=== PATIENT | female | born 1995 | race Hispanic/Latino ===

== ENCOUNTER 2025-04-26 09:00 | Emergency (ER) | payer MEDICAID ==
[~2025-04-26] VITALS: Ht 162.6 cm; Wt 78.5 kg
[2025-04-26 09:25] LABS: IMMATURE GRANULOCYTE ABSOLUTE 0.01 K/uL (0-1); NUCLEATED RED BLOOD CELLS 0.0 % (0.0-0.19); PLATELET COUNT (AUTO) 305 K/uL (130-400); RED BLOOD CELL COUNT(AUTO) 4.32 MIL/uL (4.00-5.50); RED CELL DISTRIBUTION WIDTH 12.7 % (11.0-15.5); WHITE BLOOD COUNT (AUTO) 6.2 K/uL (4.8-10.8)
[2025-04-26 09:34] LABS: CREATININE 0.7 mg/dL (0.5-1.0); GLOMERULAR FILTR. RATE CALC 119.0 mL/min (>90); GLUCOSE,RANDOM 92.0 mg/dL (70-105); SODIUM SERUM 136.0 mmol/L (136-145); UREA NITROGEN, BLOOD 7.0 mg/dL (7-18)
[2025-04-26 09:36] LABS: APPEARANCE,URINE CLEAR (CLEAR); GLUCOSE, URINE (UA) NEGATIVE (NEGATIVE); LEUKOCYTE ESTERASE ,URINE NEGATIVE Leu/uL (NEGATIVE); NITRATE,URINE NEGATIVE (NEGATIVE); OCCULT BLOOD,URINE MODERATE (NEGATIVE)
[2025-04-26 09:38] LABS: ADD UA MICROSCOPIC YES
[2025-04-26 09:44] LABS: ASPARTATE AMINOTRANSFERASE 11.0 U/L (10-37); HCG,QUANTITATIVE 13.0 mIU/mL (0-5); TOTAL PROTEIN, SERUM 8.4 g/dL (6.0-8.3)
[2025-04-26 09:50] LABS: HCG,QUALITATIVE URINE POSITIVE (NEGATIVE)
[2025-04-26 10:00] LABS: SQUAMOUS EPITHELIAL CELL,UR Moderate /HPF (0-2)
--- NOTE | 2025-04-26 10:53 | ERN ---
ED Note History of Present Illness Stated Complaint: VAGINAL BLEEDING, 6 WEEKS Chief Complaint: Vaginal Bleeding Time Seen by MD: 09:02 Dictation: 29-year-old female presenting to the emergency department for vaginal bleeding patient reports she had multiple tests at home that were positive in the urine, has not seen a OBGYN yet, last menstrual period was six weeks ago. Patient denies any chest pain shortness of breath or abdominal pain. Allergies: Coded Allergies: No Known Allergies (Unverified Allergy, Unknown, 04/26/25) Past Medical History Past Medical History: No Pertinent History Surgical History: None LMP: Mar 21, 2025 : 1 Para: 0 Aborts: 0 Review of System Dictation Constitutional: Negative for fever,chills, and weight loss Eyes: Negative for injury, pain,redness, and discharge ENT: Negative for injury,pain or swelling Cardiovascular: Negative for chest pain, palpitations, and edema Respiratory: Negative for shortness of breath, cough, and wheezing, Abdomen/GI: Negative for abdominal pain, nausea, vomiting, diarrhea, and constipation Back: Negative for injury and pain : Per HPI MS/Extremity: Negative for injury and deformity Skin: Negative for rash, and discoloration Neuro: Negative for headache, weakness, numbness, tingling, and seizure Psych: Negative for suicide ideation, homicidal ideation, and hallucinations Initial Vital Sign VS Vital Signs Date Time Temp Pulse Resp B/P (MAP) Pulse Ox O2 Delivery O2 Flow Rate FiO2 04/26/25 09:02 97.9 62 16 131/73 99 Room Air 0 04/26/25 09:55 21 Physical Exam Dictation General: awake, alert, NAD Head/Face: Normocephalic, atraumatic Eyes: PERRL, EOMI, vision at baseline ENT: oral cavity clear, TMs clear, no signs of infection Neck: Trachea midline, supple, no nuchal rigidity Cardiovascular: RRR, normal S1/S2, No MRGs, no JVD Respiratory: CTAB, no respiratory distress, No rales or wheezes Abdomen: Soft, non-tender, non-distended, normal bowel sounds, no guarding or rebound. Skin: Warm, dry, normal turgor, no rash MS/Extremity: Pulses equal, no cyanosis, neurovascular intact, FROM Neuro: COAx4, GCS 15, strength 5/5, CN 2-12 intact, normal cerebellar exam, normal gait, Psych: Normal behavior, mood, and affect normal Results (Laboratory/Radiology) Laboratory/Radiology Laboratory Tests Test 04/26/25 09:14 04/26/25 09:28 White Blood Count 6.2 K/uL (4.8-10.8) Red Blood Count 4.32 MIL/uL (4.00-5.50) Hemoglobin 14.0 g/dL (12.0-16.0) Hematocrit 41.8 % (36-48) Mean Corpuscular Volume 96.8 fL (79-99) Mean Corpuscular Hemoglobin 32.4 pg (27.0-33.0) Mean Corpuscular Hemoglobin Concent 33.5 g/dL (32.0-36.0) Red Cell Distribution Width 12.7 % (11.0-15.5) Platelet Count 305 K/uL (130-400) Mean Platelet Volume 10.6 fL (7.5-10.5) H Immature Granulocyte % (Auto) 0.2 % (0-1) Neutrophils (%) (Auto) 56.3 % (40.0-77.0) Lymphocytes (%) (Auto) 35.4 % (21.0-51.0) Monocytes (%) (Auto) 7.4 % (3.0-13.0) Eosinophils (%) (Auto) 0.5 % (0.0-8.0) Basophils (%) (Auto) 0.2 % (0.0-5.0) Neutrophils # (Auto) 3.5 K/uL (1.8-7.7) Lymphocytes # (Auto) 2.2 K/uL (1.0-4.8) Monocytes # (Auto) 0.5 K/uL (0.1-1.0) Eosinophils # (Auto) 0.03 K/uL (0.00-0.70) Basophils # (Auto) 0.01 K/uL (0.00-0.20) Absolute Immature Granulocyte (auto 0.01 K/uL (0-1) Nucleated Red Blood Cells 0.0 % (0.0-0.19) Sodium Level 136 mmol/L (136-145) Potassium Level 3.9 mmol/L (3.5-5.1) Chloride Level 101 mmol/L (101-111) Carbon Dioxide Level 25 mmol/L (21-32) Blood Urea Nitrogen 7 mg/dL (7-18) Creatinine 0.7 mg/dL (0.5-1.0) Glomerular Filtration Rate Calc 119 mL/min (>90) Random Glucose 92 mg/dL (70-105) Total Calcium 9.3 mg/dL (8.5-10.1) Total Bilirubin 0.5 mg/dL (0.2-1.0) Direct Bilirubin 0.1 mg/dL (0.0-0.3) Aspartate Amino Transf (AST/SGOT) 11 U/L (10-37) Alanine Aminotransferase (ALT/SGPT) 15 U/L (12-78) Alkaline Phosphatase 70 U/L (50-136) Total Protein 8.4 g/dL (6.0-8.3) H Albumin 4.3 g/dL (3.5-5.0) Human Chorionic Gonadotropin, Quant 13 mIU/mL (0-5) H Urine Color LIGHT-YELLOW (YELLOW) Urine Appearance CLEAR (CLEAR) Urine pH 5.5 (5.0-8.0) Urine Specific [place] 1.017 (1.001-1.031) Urine Protein NEGATIVE mg/dL (NEGATIVE) Urine Glucose (UA) NEGATIVE mg/dL (NEGATIVE) Urine Ketones 20 mg/dL (NEGATIVE) H Urine Occult Blood MODERATE (NEGATIVE) H Urine Nitrate NEGATIVE (NEGATIVE) Urine Bilirubin NEGATIVE mg/dL (NEGATIVE) Urine Urobilinogen 0.2 mg/dL (0.2-1.0) Urine Leukocyte Esterase NEGATIVE Jessica/uL Urine RBC 6-10 /HPF (0-1) H Urine WBC 0-1 /HPF (0-1) Urine Squamous Epithelial Cells Moderate /HPF (0-2) H Urine Bacteria None Seen /HPF (None Seen) Urine HCG, Qualitative POSITIVE (NEGATIVE) H Labs Reviewed?: Yes ED Course ED Course Orders Procedure Category Date Status Time Type And Screen BBK 04/26/25 Complete : Hcg,Quantitative LAB 04/26/25 Complete : Basic Metabolic Panel LAB 04/26/25 Complete : Cbc With Differential LAB 04/26/25 Complete 09: Hepatic Function Panel LAB 04/26/25 Complete 09: ,Urine Test LAB 04/26/25 Complete 09: Urinalysis Profile LAB 12/1/25 Complete 09:03 Us Ob <14 Weeks US 04/26/25 Taken 09:38 Vital Signs Date Time Temp Pulse Resp B/P (MAP) Pulse Ox O2 Delivery O2 Flow Rate FiO2 04/26/25 09:55 97.9 67 16 111/67 100 Room Air* 0 21 04/26/25 09:02 97.9 62 16 131/73 99 Room Air 0 Medical Decision Making MDM MDM: Differential diagnosis: Rationale: Tests considered and ordered secondary to shared decision making include: Previous outside records reviewed: Old ER visits. Risk of complication and/or morbidity or mortality of patient management: None Medications-Per medication reconciliation Need for hospitalization: Patient does not meet criteria for hospitalization. Need for emergency major/minor surgery: No There are no social concerns with this patient. Prescription drug management Prescriptions will include symptomatic care Patient's prior external medical records from other ER visits were reviewed by me as indicated. Prior testing and results from previous visits were reviewed. Prior tests were taken into account with medical decision making and resource utilization, independent historian/historians were used to obtain complete medical history. I independently interpreted the test that were performed, results were reviewed by me and considered findings on radiology if ordered. Medical management and examination interpretation discussions were had by me with other qualified healthcare professionals as indicated for the patient's care. 29-year-old female with threatened ab, hCG of 13, ultrasound shows no signs of IUP or ectopic likely incomplete miscarriage stable for outpatient follow up. DX & DISP Disposition: Discharge Departure Impression: Primary Impression: Threatened Condition: Stable Referrals: SELF,REFERRAL (PCP) SHLOMO BROWN MD Apr 26, 2025 10:53
[2025-04-26 11:20] VITALS: BP 108/67; PULSE 65; RESP 16; TEMP 97.9; O2SAT 98
--- NOTE | 2025-04-26 11:38 | HMCIMG ---
EXAM: US Pelvis, Complete. CLINICAL HISTORY: Confirm intrauterine . TECHNIQUE: Transabdominal pelvic ultrasound (complete) with image documentation. COMPARISON: None provided. FINDINGS: UTERUS/CERVIX: Uterus measures 7.4 x 3.9 x 4.8 cm. No intrauterine gestational sac is seen. Endometrial thickness is 3 mm. No evidence of uterine fibroid or other mass. RIGHT OVARY: Right ovary measures 2.7 x 1.9 x 2.6 cm, normal vascularity, no abnormal mass. LEFT OVARY: Left ovary measures 2.7 x 1.5 x 2.1 cm, normal vascularity, no abnormal mass. FREE FLUID: No free fluid. IMPRESSION: 1. No intrauterine gestational sac identified. Recommend follow-up serial quantitative beta-hCG and ultrasound imaging. /[place]
== END 2025-04-26 11:25 | disposition home or self-care (01) ==
LOC: EDH 09:00
DX: O20.0 Threatened abortion (principal); Z3A.01 Less than 8 weeks gestation of pregnancy
CPT/HCPCS: 36415; 76801; 80048; 80076; 81001; 81025; 84702; 85025; 86850; 86900; 86901; 99284